=== PATIENT | male | born 2000 | race Caucasian/White ===

== ENCOUNTER 2024-03-20 14:20 | Emergency (ER) | payer OTHER ==
[~2024-03-20] VITALS: Ht 182.9 cm; Wt 120.2 kg
[2024-03-20 14:27] VITALS: BP_SYST 132; PULSE 92; RESP 15; TEMP 98.6; O2SAT 99
[2024-03-20] MEDS: ACETAMINOPHEN 500 MG TABLET PO ONE (14:49)
[2024-03-20] MEDS ORDERED: IBUP-1971 PO (15:04)
[2024-03-20] MEDS ORDERED: ONDA-8 TL (15:04)
[2024-03-20 15:10] VITALS: BP_SYST 119; PULSE 71; RESP 12; TEMP 98.6; O2SAT 99
[2024-03-20] MEDS: IBUPROFEN 800 MG TABLET PO ONE (15:12)
== END 2024-03-20 15:24 | disposition home or self-care (01) ==
LOC: SED 14:20
DX: S06.0X0A Concussion without loss of consciousness, initial encounter (principal); F12.90 Cannabis use, unspecified, uncomplicated; W22.8XXA Striking against or struck by other objects, initial encounter; Y93.89 Activity, other specified; Y92.89 Other specified places as the place of occurrence of the external cause; Y99.8 Other external cause status
CPT/HCPCS: 70450-TC; 99284